=== PATIENT | male | born 1965 | race Caucasian/White ===

== ENCOUNTER → 2024-06-10 08:06 | Outpatient (REF) | payer SELFPAY | LOC: HWRAD 08:06 | PROVIDERS: ATTENDING PHYSICIAN Internal Medicine | DX: E78.2 Mixed hyperlipidemia (principal) | CPT/HCPCS: 75571 ==

== ENCOUNTER → 2025-02-02 06:58 | Outpatient (REF) | payer BC, SELFPAY | LOC: RAD 06:58 | PROVIDERS: ATTENDING PHYSICIAN Nurse Practitioner Family | DX: R23.0 Cyanosis (principal) | CPT/HCPCS: 93923; 93930 ==